=== PATIENT | male | born 1975 | race Caucasian/White ===

== ENCOUNTER 2017-01-06 08:22 | Emergency (ER) | payer OTHER, MEDICARE ==
[~2017-01-06] VITALS: Ht 175.3 cm; Wt 90.7 kg
[~2017-01-06 08:22] MED LIST: ADVAIR DISKU 11 UNIT INH; ALPRAZOLAM0.5 M3 PO; BENADRYL 50 MG50 MG PO; COMPAZINE10 MG PO; DICYCLOMINE HCL10 MG PO; HYOSCYAMINE0.125 M1 PO; LIDODERM 5% PAT1 PAT TOP; MEDROL DOSEPAK1 PAC PO; METAXALONE800 MG PO; MORPHINE SULFAT15 M1 PO; ONDANSETRON HYDR8 MG PO; PANTOPRAZOLE SO40 MG PO; PAROXETINE20 MG PO; PRAZOSIN HCL2 MG PO; PROAIR HFA0.09 MG/Ac INH; RELPAX20 MG PO; ROZEREM8 MG PO
--- NOTE | 2017-01-06 09:07 | ED HEADACHE COMPLAINT ---
History of Present Illness General Chief Complaint: Headache Stated Complaint: GOODEN Source: patient, family Exam Limitations: no limitations Vital Signs & Intake/Output Vital Signs & Intake/Output Vital Signs Date Time Temp Pulse Resp B/P Pulse O2 O2 Flow FiO2 Ox Delivery Rate 01/06 1043 96.8 68 18 122/83 99 Room Air 01/06 0827 98.0 74 20 117/85 98 Room Air Allergies Coded Allergies: lamotrigine (Mild, RASH 01/06/17) Penicillins (UNKNOWN 01/06/17) nicotine (From Nicoderm CQ) (RASH 01/06/17) NICOTINE TRANSDERMAL PATCH aspirin (MADE HEADACHES WORSE 01/06/17) bupropion (From Wellbutrin) (DISSOCIATIVE EPISODES-PER PT 01/06/17) duloxetine (PSYCHOSIS 01/06/17) Reconcile Medications Albuterol Sulfate (Proair Hfa) 0.09 MG/Actuation AYAAN 2 PUFF INH PRN ASTHMA ( Reported) Alprazolam 0.5 MG TAB 1 TAB PO TID PRN ANXIETY (Reported) Diphenhydramine HCl (Benadryl) 50 MG CAPSULE 1 CAP PO QPM ITCHING (Reported) ELETRIPTAN HBR (Relpax) 20 MG TABLET 1 TAB PO PRN CLUSTER MIGRAINES (Reported ) Fluticasone-Salmeterol (Advair 100-50 Diskus) 100 MCG-50 MCG/DOSE BLST.W.DEV 1 PUF INH BID ASTHMA (Reported) Hyoscyamine Sulfate 0.125 MG TABLET 1 TAB PO PRN ABD CRAMPING (Reported) Lidocaine HCl (Lidoderm Patch) 5 % PAT 1-3 PAT TOP PRN PAIN (Reported) may wear up to 12 hours Metaxalone 800 MG TABLET 1 TAB PO TID PRN SPASMS (Reported) Methylprednisolone. (Medrol) 4 MG TAB.DS.PK 0 PO DAILY BACK PAIN USE DIRECTED Morphine Sulfate [address] 1 TAB PO TID PRN PAIN (Reported) ONDANSETRON HCL (Ondansetron Hydrochloride) 8 MG TABLET 1 TAB PO TID PRN NAUSEA (Reported) Pantoprazole Sodium 40 MG TABLET.DR 1 TAB PO BID GI (Reported) PRAZOSIN HCL (Prazosin HCl) 2 MG CAPSULE 1 CAP PO QPM NIGHTMARES (Reported) Prochlorperazine Maleate (Compazine) 10 MG TAB 1 TAB PO TID PRN N/V (Reported ) Ramelteon (Rozerem) 8 MG TABLET 1 TAB PO QPM SLEEP (Reported) Triage Note: PT TO ED C/O "EXTREME MIGRAINE" SINCE 0300. H/O "CLUSTER HEADACHE". C/O N/V. TOOK PO MORPHINE AND PHENERGAN AT 0600. Triage Nurses Notes Reviewed? yes Onset: Abrupt Duration: hour(s):, constant, continues in ED Timing: recent history Quality/Severity: moderate, severe HPI: 41-year-old male comes into the emergency room with what he describes as a migraine headache since 3 AM. Patient has a history of migraine headaches and headache feels consistent with previous migraines except the pain feels just slightly different but other symptoms are consistent with it. Patient is experiencing pain on the left side of his face and left-sided his head. Patient reports some photophobia when he woke up this morning and some spots in his left eye. Patient also has had associated nausea vomiting. Patient took his Phenergan and oral morphine at home with no relief. Nothing seems symptoms better. Patient reports that when he comes to the hospital he usually gets IV Dilaudid and IV Toradol for his headache. (MADONNA CERVANTES) Past History Travel History Traveled to [place] past 21 day No Medical History Any Pertinent Medical History? 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 No (MADONNA CERVANTES) Review of Systems Review of Systems Constitutional: Reports: no symptoms. Eyes: Reports: no symptoms. Ears, Nose, Throat, Mouth: Reports: no symptoms. Respiratory: Reports: no symptoms. Cardiovascular: Reports: no symptoms. Gastrointestinal/Abdominal: Reports: see HPI. Genitourinary: Reports: no symptoms. Musculoskeletal: Reports: no symptoms. Skin: Reports: no symptoms. Neurological/Psychological: Reports: see HPI. Hematologic/Endocrine: Reports: no symptoms. Endocrine: Reports: no symptoms. Immunologic/Allergic: Reports: no symptoms. All Other Systems: Reviewed and Negative (MADONNA CERVANTES) Physical Exam Physical Exam General Appearance: well developed/nourished, alert, awake, mild distress Head: atraumatic, normal appearance Eyes: Bilateral: normal appearance, PERRL, EOMI. Ears, Nose, Throat: normal pharynx, normal ENT inspection Neck: normal inspection, full range of motion Respiratory: normal breath sounds, no respiratory distress Cardiovascular: regular rate/rhythm Back: normal inspection Extremities: normal inspection, normal range of motion Psychiatric: awake, alert, oriented x 3 Cranial Nerves: normal hearing, normal speech, PERRL Coordination/Gait: normal gait Motor/Sensory: no motor/sensory deficits Skin: intact, normal color Core Measures Severe Sepsis Present: No Septic Shock Present: No (MADONNA CERVANTES) Progress Differential Diagnosis: carotid dissection, cav sinus thromb, cluster GOODEN, encephalitis, IC mass/tumor, intracranial Hem., meningitis, migraine GOODEN, musculoskeletal pain, sinusitis, SSS thrombosis, subarach. Hem., tension GOODEN, temporal arteritis, TMJ syndrome, viral cephalgia Plan of Care: 01/06/2017 10:43:44 AM Patient's symptoms have resolved after IV medications. Patient discharged with follow-up to see primary care doctor as well as neurologist. Return if any other concerns worsening symptoms. (MADONNA CERVANTES) Departure Departure Disposition: HOME OR SELF CARE Condition: Stable Clinical Impression Primary Impression: Migraine headache Referrals: RAJ JUDGE,CADEN (PCP/Family) Additional Instructions: Contact your primary care doctor and follow up with neurologist. Return if any other concerns worsening symptoms. Take your oral medications at home as prescribed. Please go over all results of today's visit with your primary care doctor. Contact your primary care doctor to let them know you were here in the emergency room. There may be nonspecific findings which may not be related to your visit today here in the emergency room but may require further evaluation and chronic monitoring by your primary care doctor. If you had a laceration today the chance of foreign body always remains. You should follow-up with your primary care doctor for recheck in 3-5 days for a wound check. If you had an x-ray done there is a chance that a fracture could have been missed on initial read and you should follow-up with your primary care doctor for repeat x-rays if symptoms persist. If your blood pressure was elevated here in the emergency room please have rechecked by her primary care doctor within the next 48 hours by your primary care doctor. If you were prescribed a narcotic here in the emergency room or any type of controlled substances you're not allowed to drive while taking this medication or operate any type of heavy machinery. Narcotics can make you feel lightheaded dizziness nausea and can cause constipation. You may need to machine operator hop picker a stool softener. Thank you for choosing [facility] emergency room. Please return to the emergency room immediately if you have any other concerns worsening of symptoms. Departure Forms: Customer Survey General Discharge Information (MADONNA CERVANTES) PA/[employer] Co-Sign Statement Statement: ED Attending supervision documentation- [] I saw and evaluated the patient. I have also reviewed all the pertinent lab results and diagnostic results. I agree with the findings and the plan of care as documented in the PA's/[employer]'s documentation. x I have reviewed the ED Record and agree with the PA's/[employer]'s documentation. [] Additions or exceptions (if any) to the PAs/[employer]'s note and plan are summarized below: [] (BRANT JUDGE,URBAN)
[2017-01-06 10:43] VITALS: BP 122/83
== END 2017-01-06 11:48 ==
LOC: ERH 08:22
DX: G43.909 Migraine, unspecified, not intractable, without status migrainosus (principal)
CPT/HCPCS: 96374; 96375; J1885; J2765